=== PATIENT | female | born 2000 | race Caucasian/White ===

== ENCOUNTER 2025-01-24 00:34 | Inpatient (IN) | payer BC ==
[2025-01-24] VITALS (34 sets, daily range): BP systolic 98–134; BP diastolic 64–92
[~2025-01-24] VITALS: Ht 152.4 cm; Wt 78.0 kg
--- NOTE | 2025-01-24 00:40 | NUR ---
PATIENT TO ROOM 9
[2025-01-24] MEDS ORDERED: SODIUM CHLORIDE 0.9% 1,000 ML IV ONE (01:00)
[2025-01-24 01:26] LABS: BASO% 0.5 % (0-3); EOS% 0.1 % (0-8); HEMATOCRIT 40.4 % (37.0-47.0); HEMOGLOBIN 13.5 g/dl (12.0-16.0); IMMATURE GRANULOCYTES 1.1 % (0.0-5.0); LYMPH% 12.4 % (15-41); MEAN CELL VOLUME 91.8 fL CALC (80.0-100.0); MEAN CORPUSCULAR HGB 30.7 pG CALC (26.0-32.0); MEAN CORPUSCULAR HGB CONC 33.4 g/dL CAL (32.0-36.0); MONO% 4.9 % (2-13); NEUT# 13.46 thou/uL (2.00-7.15); RED BLOOD COUNT 4.4 mill/uL (4.20-5.60); RED CELL DISTRI WIDTH 11.9 % (11.5-15.5)
[2025-01-24 01:26] LABS: URINE BILIRUBIN - DIPSTICK Negative (NEGATIVE); URINE BLOOD DIPSTICK Large (NEGATIVE); URINE CLARITY Slightly Cloudy; URINE COLOR Yellow; URINE GLUCOSE - DIPSTICK 500 mg/dL (NEGATIVE); URINE KETONE >=160 mg/dL (NEGATIVE); URINE LEUK ESTERASE Negative (Negative); URINE NITRITE - DIPSTICK Negative (Negative); URINE PH 5.5 (4.5-8.0); URINE PROTEIN - DIPSTICK Negative (NEG-TRACE); URINE SPECIFIC GRAVITY 1.015; URINE UROBILINOGEN - DIPSTICK 0.2 E.U./dL (0.2)
--- NOTE | 2025-01-24 01:30 | NUR ---
PATIENT RESTING IN BED, NAD
[2025-01-24 01:32] LABS: URINE RBC 25-50 RBC/hpf (0-5); URINE SQUAMOUS EPITHELIAL CELL FEW EPI/hpf (0-FEW)
[2025-01-24 01:41] LABS: ALBUMIN 4.6 g/dL (3.2-5.0); BILIRUBIN, TOTAL 1.1 mg/dL (0.02-1.3); CREATININE 0.9 mg/dL (0.5-1.0)
[2025-01-24 01:50] LABS: POTASSIUM 5.4 mmol/l (3.5-5.1)
[2025-01-24] MEDS ORDERED: INSULIN REGULAR (HUMAN) IN SOD 100 ML IV ONE (02:00)
[2025-01-24] MEDS ORDERED: EUTHYROX137 MCG PO (02:06)
[2025-01-24] MEDS ORDERED: PROZAC10 MG PO (02:07)
[2025-01-24] MEDS ORDERED: CLONIDINE0.2 MG PO (02:08)
[2025-01-24] MEDS ORDERED: HYDROXYZ HCL25 MG PO (02:08)
[2025-01-24] MEDS ORDERED: LYUMJEV100 UNIT/M (02:11)
--- NOTE | 2025-01-24 02:30 | NUR ---
REPORT GIVEN TO Ramin CARLISLE RN
[2025-01-24] MEDS ORDERED: DEXTROSE 5% w/NACL 0.45 1,000 ML IV ONE (02:45)
[2025-01-24] MEDS ORDERED: SODIUM CHLORIDE 0.45% 1,000 ML IV ONE (02:45)
[2025-01-24] MEDS ORDERED: D5 1/2 NaCL W/KCL 20MEQ 1,000 ML IV ONE (02:45)
[2025-01-24] MEDS ORDERED: SODIUM CHLORIDE 0.9% 1,000 ML IV PRN (02:45)
[2025-01-24] MEDS ORDERED: POTASSIUM CHLORIDE IN NACL 1,000 ML IV ONE (02:45)
[2025-01-24] MEDS ORDERED: POTASSIUM CHLORIDE 20MEQ 100 ML IV PRN (02:45)
--- NOTE | 2025-01-24 02:50 | NUR ---
PATIENT TRANSPORTED TO ICU OVERFLOW BED 14
[2025-01-24] MEDS ORDERED: INSULIN REGULAR (HUMAN) IN SOD 100 ML IV PRN (03:00)
[2025-01-24] MEDS ORDERED: ACETAMINOPHEN 325 MG/TAB PO PRN (03:00)
[2025-01-24] MEDS ORDERED: MAGNESIUM HYDROXIDE 30 ML UDC PO PRN (03:00)
--- NOTE | 2025-01-24 03:30 | NUR ---
PT ARRIVED TO ROOM @ APPROX 0316. PT AMBULATED FROM W/C TO BR BACK TO BED. PT STATES SHE RAN OUT OF INSULIN. PT IS ON INSULIN GTT @ 4 U/HR, PER PROTOCOL, RECENT GLUCOSE OF 394. 1/2 NS IS RUNNING PER ORDERS. PT STATES NO COMPLAINTS/NEEDS AT THIS TIME. WARM BLANKETS PROVIDED FOR COMFORT. V/S STABLE. CALL LIGHT IN REACH
--- NOTE | 2025-01-24 06:36 | NUR ---
PT IS RESTING COMFORTABLY, HAS NO COMPLAINTS. RECENT GLUCOSE OF 294. INSULIN GTT @ 3 U/HR PER ORDERS. V/S STABLE. CALL LIGHT IS IN REACH
--- NOTE | 2025-01-24 07:15 | NUR ---
Report received from date night sitter nurse. Patient is resting in bed, denies any pain. A&Ox4, on room air, VS WNL, NSR on tele monitor. Insulin drip running at 3 units/hour and IV fluids running as ordered. All needs addressed, call light within reach.
--- NOTE | 2025-01-24 07:29 | NUR ---
blood glucose 290, no change to insulin drip. Rate will remain the same (3units/hour).
[2025-01-24 08:10] LABS: BASO% 0.3 % (0-3); EOS% 0.1 % (0-8); HEMATOCRIT 39.1 % (37.0-47.0); HEMOGLOBIN 13.2 g/dl (12.0-16.0); IMMATURE GRANULOCYTES 0.3 % (0.0-5.0); LYMPH% 15.1 % (15-41); MEAN CELL VOLUME 92.7 fL CALC (80.0-100.0); MEAN CORPUSCULAR HGB 31.3 pG CALC (26.0-32.0); MEAN CORPUSCULAR HGB CONC 33.8 g/dL CAL (32.0-36.0); MONO% 5.1 % (2-13); NEUT# 13.75 thou/uL (2.00-7.15); NEUT% 79.1 % (42-76); RED BLOOD COUNT 4.22 mill/uL (4.20-5.60); RED CELL DISTRI WIDTH 12.3 % (11.5-15.5)
[2025-01-24 08:34] LABS: ALBUMIN 4.5 g/dL (3.2-5.0); BILIRUBIN, TOTAL 0.8 mg/dL (0.02-1.3); CREATININE 0.8 mg/dL (0.5-1.0); POTASSIUM 4.8 mmol/l (3.5-5.1); TOTAL PROTEIN 7.6 g/dL (6.3-8.2)
--- NOTE | 2025-01-24 08:35 | NUR ---
Blood glucose 288, no change in rate of drip. Insulin drip remains at 3 units/hr.
--- NOTE | 2025-01-24 09:21 | NUR ---
IV fluids changed to 1/2 NS with 20meq K per orders.
--- NOTE | 2025-01-24 09:36 | NUR ---
Blood glucose is 230. No changes made to insulin drip, drip remains at 3 units/hr.
--- NOTE | 2025-01-24 10:40 | NUR ---
Blood glucose 174. Insulin drip changed to 2 units/hr per order set. Called pharmacy for IV fluids as orders now call for d5 1/2 ns with 20meq KCl.
--- NOTE | 2025-01-24 11:37 | NUR ---
Blood glucose 151. No changes made to insulin drip.
[2025-01-24 12:23] LABS: ALBUMIN 3.9 g/dL (3.2-5.0); BILIRUBIN, TOTAL 0.6 mg/dL (0.02-1.3); CREATININE 0.6 mg/dL (0.5-1.0); POTASSIUM 4.3 mmol/l (3.5-5.1); TOTAL PROTEIN 7.2 g/dL (6.3-8.2)
--- NOTE | 2025-01-24 12:35 | NUR ---
Blood glucose 138, insulin drip decreasedto 1 unit/hour.
--- NOTE | 2025-01-24 13:35 | NUR ---
Blood glucose 143, no changes made to drip.
--- NOTE | 2025-01-24 14:40 | NUR ---
Blood glucose 246. Insulin drip increased to 3 units/hr.
--- NOTE | 2025-01-24 15:45 | NUR ---
Blood glucose 187, insulin drip decreased to 2 units/hr.
[2025-01-24 16:51] LABS: ALBUMIN 3.8 g/dL (3.2-5.0); BILIRUBIN, TOTAL 0.6 mg/dL (0.02-1.3); CREATININE 0.6 mg/dL (0.5-1.0); TOTAL PROTEIN 6.9 g/dL (6.3-8.2)
--- NOTE | 2025-01-24 17:15 | NUR ---
Patients calculated GAP is 9 which is closed. Spoke to Dr Garza, he wants to keep patient on insulin drip overnight and to continue with Q1 hour blood glucose level checks.
--- NOTE | 2025-01-24 17:45 | NUR ---
Blood glucose is 182, no changes made to insulin drip.
--- NOTE | 2025-01-24 19:00 | NUR ---
RECD PATIENT FROM DAY SHIFT RN VIA BSSR. PT GLUCOSE CHECKED AT 1845 RESULT 203 GTT TITRATED TO 3U/HR. PT AAOX4 DENIES COMPLAINTS AT THIS TIME. VSS.
[2025-01-24] MEDS ORDERED: D5 1/2 NaCL W/KCL 20MEQ 1,000 ML IV PRN (19:45)
--- NOTE | 2025-01-24 20:02 | NUR ---
ONE HOUR GLUCOSE 191; GTT TITRATION TO 2U/HR. SPOKE WITH DR GUTIERREZ, PLAN TO CONTINUE INSULIN GTT HOURLY WITHOUT COMPLETION OF PROTOCOL, CONTINUE D51/2NS+20K AT 80ML/HR THROUGH THE NIGHT. WILL REASSESS IN AM. CONTINUE HOURLY BLOOD SUGAR MONITORING. ORDERS ENTERED.
[2025-01-24 20:33] LABS: ALBUMIN 3.8 g/dL (3.2-5.0); BILIRUBIN, TOTAL 0.5 mg/dL (0.02-1.3); CREATININE 0.7 mg/dL (0.5-1.0); POTASSIUM 3.9 mmol/l (3.5-5.1); TOTAL PROTEIN 6.8 g/dL (6.3-8.2)
[2025-01-24] MEDS ORDERED: ENOXAPARIN SODIUM 40 MG/0.4 ML SYR SC SCH (21:00)
--- NOTE | 2025-01-24 21:27 | NUR ---
HOURLY GLUCOSE CHECKS IN PROGRESS. TITRATIONS PER PROTOCOL. D51/2NS+20K NEW BAG HUNG AND RATE REDUCED TO 80CC.HR PER MD ORDER. SHALL REMAIN ON INSULIN AND SUPP IVF THROUGHOUT THE NIGHT WITH PLAN FOR MD TO REASSESS IN AM. DENIES NEEDS AT THIS TIME. VSS. AMBULATES INDEPENDENTLY WHEN NEEDED. RESTING COMFORTABLY WITH CALL LIGHT IN REACH. DEMONSTRATED UNDERSTANDING OF FALL PRECAUTIONS AND CALL LIGHT USAGE.
--- NOTE | 2025-01-24 22:19 | NUR ---
- MD AND RN DISCUSSED AND PREFERENCE IS TO ALLOW PT TO EAT LOW CARD/SUGAR CONTROLLED MEAL, RECHECKING FSBG ONE HOUR POSTPRANDIAL WITH TITRATION NEEDED AND TO RESUME Q1H MONITORING BEGINNING AT ONE HOUR POST MEAL INTAKE PER MD ORDER. ORDER WRITTEN. PT GIVEN 1 TURKEY WRAP WITH LOW FAT/LIGHT [place], SUGAR FREE PUDDING, SUGAR FREE ZERO CARB DAVID RUTH ANN X 2 AND WATER. CURRENTLY EATING MEAL UNDER MONITORING. WILL RECHECK 1 HOUR POST END OF MEAL CONSUMPTION. VSS. DENIES COMPLAINTS AT THIS TIME
--- NOTE | 2025-01-24 23:29 | NUR ---
BLOOD SUGAR RECHECK PER MD ORDER - 147. INSULIN GTT TO CONTINUE AT 1U/HR PER PROTOCOL FLOW SHEET. RECHECK CONTINUES IN ONE HOUR. DENIES PAIN. ABLE TO MAKE NEEDS KNOWN, DENIES COMPLAINTS OR NEEDS AT THIS TIME. VSS. RESTING WELL WITH CALL LIGHT WITHIN REACH
[2025-01-25] VITALS (22 sets, daily range): BP systolic 96–133; BP diastolic 60–95
--- NOTE | 2025-01-25 00:44 | NUR ---
BLOOD SUGAR RECHECK - 216, RAISED TO 3 UNITS PER PROTOCOL DENIES PAIN VSS. SLEEPING WELL WITH CALL LIGHT WITHIN REACH
--- NOTE | 2025-01-25 01:29 | NUR ---
ASSISTED TO BATHROOM. FOUND UNDER PATIENT WAS RAZZ VAPE CARTRIDGE, EDUCATION PATIENT VAPING IN THE HOSPITAL WAS NOT PERMITTED. VAPE CARTRIDGE REMOVED FROM ROOM AND LABELED WITH PT LABEL. HELD IN NURSING AREA UNTIL DC. REPEATBLOOD SUGAR CHECK 0130 -179, REDUCED TO 2U/HR PER PROTOCOL. AWAITING LABS FROM 0100AM DRAW. VSS, DENIES PAIN OR COMPLAINT AT THIS TIME. NO SIGN OF DISTRESS NOTED. RESTING WELL WITH CALL LIGHT WITHIN REACH
[2025-01-25 01:35] LABS: ALBUMIN 3.5 g/dL (3.2-5.0); BILIRUBIN, TOTAL 0.5 mg/dL (0.02-1.3); CREATININE 0.6 mg/dL (0.5-1.0); POTASSIUM 3.4 mmol/l (3.5-5.1); TOTAL PROTEIN 6.7 g/dL (6.3-8.2)
--- NOTE | 2025-01-25 02:00 | NUR ---
DEPLETING SERUM K LEVEL; INCREASE D51/2NS+20K TO 100 CC/HR PER MD ORDER. ORDER WRITTEN AND ENTERED.
--- NOTE | 2025-01-25 03:20 | NUR ---
PT RESTING CALMLY WITH NO SIGNS OF DISTRESS. CALL LIGHT OBSERVED WITHIN REACH
--- NOTE | 2025-01-25 03:33 | NUR ---
MAGY RECHECK 0330- 197; NO CHANGE, GTT REMAINS AT 2U/HR. REEDUCATED PATIENT REGARDING INTAKE OF ANY UNAPPROVED OR UNAUTHORIZED SNACKS/FOODS. ASSISTED PATIENT TO RESTROOM, WHILE IN RESTROOM, LOOKED THROUGH PT ROOM AND BEDDING FOUND WRAPPER TO [facility] SNACK CEREAL BAR. REENFORCED ON RETURN FROM BATHROOM THAT ADDITIONAL SNACKING WOULD ELONGATE TIME TO STABILIZE BLOOD SUGAR. VERBALIZES UNDERSTANDING. ASSISTED TO BED AND TO COMFORT. BED IN LOW POSITION. CALL LIGHT LEFT WITHIN REACH
--- NOTE | 2025-01-25 03:55 | NUR ---
OBSERVED SLEEPING COMFORTABLY. NO SIGNS OF DISTRESS NOTED. CALL LIGHT NOTED WITHIN REACH
--- NOTE | 2025-01-25 04:38 | NUR ---
REPEAT GLUCOSE CHECK, NO CHANGE WARRANTED AT THIS TIME. FSBG 173. NO COMPLAINTS NOTED. NO SIGN OF DISTRESS AT THIS TIME. RESTING QUIETLY WITH CALL LIGHT WITHIN REACH.
--- NOTE | 2025-01-25 05:25 | NUR ---
GLUCOSE RECHECK 165 NO CHANGES TO GTT AT THIS TIME PER PROTOCOL. SLEEPING COMFORTABLY WITH STABLE VS CALL LIGHT WITHIN REACH
[2025-01-25 05:29] LABS: BASO% 0.4 % (0-3); HEMATOCRIT 37.3 % (37.0-47.0); HEMOGLOBIN 12.5 g/dl (12.0-16.0); IMMATURE GRANULOCYTES 0.3 % (0.0-5.0); LYMPH% 36.8 % (15-41); MEAN CELL VOLUME 93.5 fL CALC (80.0-100.0); MEAN CORPUSCULAR HGB 31.3 pG CALC (26.0-32.0); MEAN CORPUSCULAR HGB CONC 33.5 g/dL CAL (32.0-36.0); MONO% 5.1 % (2-13); NEUT# 6.22 thou/uL (2.00-7.15); NEUT% 55.4 % (42-76); RED BLOOD COUNT 3.99 mill/uL (4.20-5.60); RED CELL DISTRI WIDTH 12.4 % (11.5-15.5)
[2025-01-25 05:33] LABS: ALBUMIN 3.7 g/dL (3.2-5.0); BILIRUBIN, TOTAL 0.5 mg/dL (0.02-1.3); CREATININE 0.7 mg/dL (0.5-1.0); MAGNESIUM 1.7 mg/dL (1.6-2.3); POTASSIUM 3.6 mmol/l (3.5-5.1); TOTAL PROTEIN 6.8 g/dL (6.3-8.2)
--- NOTE | 2025-01-25 06:17 | NUR ---
PT REMAINS STABLE WITH NO SIGNS OF DISTRESS RESTING WELL WITH CALL LIGHT WITHIN REACH
--- NOTE | 2025-01-25 07:30 | NUR ---
Report received from manufacturing shift supervisor nurse. Patient is resting in bed, denies any pain. A&Ox4, on room air, VS WNL, NSR on tele monitor. Insulin drip running at 1 unit/hr, IV fluids running as ordered. All needs addressed, call light within reach.
--- NOTE | 2025-01-25 07:45 | NUR ---
Report received from night shift supervisor nurse. Patient is resting in bed, denies any pain. A&Ox4, on room air, NSR on tele monitor, VS WNL. IV fluids running as ordered. Insulin drip running at 1 unit/hr. Blood glucose is 114. No changes made to drip rate at this time. All needs addressed, call light within reach.
[2025-01-25] MEDS ORDERED: DEXTROSE 250 ML IV PRN ×2 (07:50)
--- NOTE | 2025-01-25 08:00 | NUR ---
Dr Garza at bedside. OK for patient to have diabetic diet.
[2025-01-25] MEDS ORDERED: INSULIN GLARGINE 100 UNITS/ML SC SCH (09:00)
--- NOTE | 2025-01-25 09:00 | NUR ---
Blood glucose 175, insulin drip increased to 2 units/hr. Long acting insulin given as GAP is closed. Will d/c insulin drip in 2 hours per protocol.
[2025-01-25 09:42] LABS: ALBUMIN 3.6 g/dL (3.2-5.0); BILIRUBIN, TOTAL 0.6 mg/dL (0.02-1.3); CREATININE 0.6 mg/dL (0.5-1.0); POTASSIUM 4.2 mmol/l (3.5-5.1); TOTAL PROTEIN 6.6 g/dL (6.3-8.2)
--- NOTE | 2025-01-25 10:00 | NUR ---
Blood gluocse 280, insulin drip increased to 3 units/ hour.
[2025-01-25] MEDS ORDERED: INSULIN LISPRO 100 UNITS/ML ML SC SCH (11:00)
--- NOTE | 2025-01-25 11:00 | NUR ---
Blood glucose 321. Insulin drip turned off and 4 units of sliding scale given per orders.
--- NOTE | 2025-01-25 14:00 | NUR ---
Patient is resting in bed, denies any pain. Visitor at bedside. Assessment unchanged. All needs addressed, call light within reach.
--- NOTE | 2025-01-25 16:00 | NUR ---
Patient resting in bed, denies any pain. Assessment unchanged. All needs addressed, call light within reach.
--- NOTE | 2025-01-25 18:00 | NUR ---
Patient ambulated to restroom without issue. Back to bed. Asked about ordering [employer]. Patient educated on importance of following a diabetic diet. Assessment unchanged. All needs addressed, call light within reach.
--- NOTE | 2025-01-25 20:00 | NUR ---
Report received from daysvtft nurse. Patient in bed watching TV. no signs of distress. VS wwithin parameters. Patient request RN to help getting her delivery food order from the ER front load trash truck driver. Food given to the patient. Patient educated about diabetic diet, carb intake, sugar intake. Patient verbalizes understanding. Patient BG is 286 at this time. Patient is AOx4. Call light at reach.
--- NOTE | 2025-01-25 22:05 | NUR ---
Patient disconnected from monitor and assisted to the bathroom. No other requests at this time. VS are WNL. Room Air. Call light within reach
[2025-01-26] VITALS (9 sets, daily range): BP systolic 98–123; BP diastolic 63–86
--- NOTE | 2025-01-26 00:01 | NUR ---
Patient sleeping. No changes in reassessment. VS WNL. Call light within reach
--- NOTE | 2025-01-26 02:20 | NUR ---
Patient sleeping. BP is hypotensive. BP cuff reapplied. Patietn is AOx4. Call light within reach
[2025-01-26 03:42] LABS: BASO% 0.6 % (0-3); EOS% 1.9 % (0-8); HEMATOCRIT 39.9 % (37.0-47.0); HEMOGLOBIN 13.6 g/dl (12.0-16.0); IMMATURE GRANULOCYTES 0.2 % (0.0-5.0); LYMPH% 39.2 % (15-41); MEAN CELL VOLUME 90.3 fL CALC (80.0-100.0); MEAN CORPUSCULAR HGB 30.8 pG CALC (26.0-32.0); MEAN CORPUSCULAR HGB CONC 34.1 g/dL CAL (32.0-36.0); NEUT# 4.49 thou/uL (2.00-7.15); NEUT% 50.1 % (42-76); RED BLOOD COUNT 4.42 mill/uL (4.20-5.60); RED CELL DISTRI WIDTH 12.4 % (11.5-15.5)
[2025-01-26 03:52] LABS: BILIRUBIN, TOTAL 0.4 mg/dL (0.02-1.3); CREATININE 0.6 mg/dL (0.5-1.0); MAGNESIUM 1.9 mg/dL (1.6-2.3); POTASSIUM 3.8 mmol/l (3.5-5.1); TOTAL PROTEIN 7.2 g/dL (6.3-8.2)
--- NOTE | 2025-01-26 04:30 | NUR ---
Patient sleeping. No changes in reasessment. VS WNL. Call light within reach
--- NOTE | 2025-01-26 08:00 | NUR ---
PT IS LAYING IN BED ASLEEP, EASILY AROUSABLE. CALL LIGHT IN REACH.
--- NOTE | 2025-01-26 10:00 | NUR ---
PT IS SITTING UP IN BED. CALL LIGHT IN REACH.
--- NOTE | 2025-01-26 10:30 | NUR ---
Discharge instructions given. Patient verbalizes understanding of same. Discharged in stable condition via Ambulatory to Home with staff. All belongings sent with pt. IV and Telelmtry removed.
== END 2025-01-26 10:30 | disposition home or self-care (01) | DRG 639 ==
LOC: ED 00:34 → ED-I 01:43 → ED 02:46 → ED-I 02:47
PROVIDERS: Emergency Medicine; ADMIT Internal Medicine; ATTEND Internal Medicine
DX: E10.10 Type 1 diabetes mellitus with ketoacidosis without coma (principal); E86.0 Dehydration; E87.5 Hyperkalemia; E03.9 Hypothyroidism, unspecified; F32.A Depression, unspecified; F17.290 Nicotine dependence, other tobacco product, uncomplicated; T38.3X6A Underdosing of insulin and oral hypoglycemic [antidiabetic] drugs, initial encounter; Z91.138 Patient's unintentional underdosing of medication regimen for other reason; Z79.4 Long term (current) use of insulin; Z96.41 Presence of insulin pump (external) (internal)
CPT/HCPCS: J1650; J1815